=== PATIENT | female | born 1965 | race Caucasian/White ===

== ENCOUNTER → 2018-10-18 09:49 | Outpatient (CLI) | payer OTHER, SELFPAY ==
--- NOTE | 2018-10-18 | DI.MRI.S_ITS ---
PROCEDURE: MR SHOULDER RT WO CON INDICATIONS: RIGHT SHOULDER PAIN TECHNIQUE: Noncontrast oblique coronal T2 fast spin echo with fat saturation, oblique sagittal T1 spin echo and T2 fast spin echo with fat saturation, axial T1 spin echo and T2 fast spin echo with fat saturation through the shoulder. COMPARISON: [facility] [place], CR, XR SHOULDER 2+ VIEWS RIGHT, 10/03/2018, 11:10. FINDINGS: Image quality: Diagnostic Rotator cuff: No definite full-thickness or high-grade partial-thickness tear of the rotator cuff is appreciated. There is increased signal involving the supraspinatus tendon with low-grade bursal surface partial-thickness tearing at the level of the footprint (image 10, series 8). The subscapularis, infraspinatus, and 3 is minor tendons are intact and otherwise unremarkable. Bones and bursae: There is no acute fracture, dislocation, or suspicious osseous lesion involving the osseous structures of the right shoulder. No significant glenohumeral joint effusion is appreciated. There are mild degenerative changes of the glenohumeral joint. Mild to moderate degenerative changes of the acromioclavicular joint are present. Edema of the subacromial subdeltoid bursa is present with a small amount of fluid contained within the bursa. Capsule and soft tissues: Evaluation of the labrum and the glenohumeral ligaments is difficult without intra-articular contrast. However, there is a small superior labral tear that likely extends from approximately the 10 o'clock position (anterosuperior) through the 12 o'clock position (superior) and 2 the 2 o'clock position (posterosuperior). No detachment or fragment or large para labral cysts are appreciated. The lung head of the biceps tendon is normally positioned within the bicipital groove and is otherwise intact and unremarkable. No acute injuries are suspected involving the glenohumeral ligaments. IMPRESSION: 1. Low-grade bursal surface partial-thickness tearing and tendinopathy of the supraspinatus tendon. No full-thickness rotator cuff tear. 2. Mild to moderate degenerative changes of the glenohumeral and acromioclavicular joints. 3. Subacromial subdeltoid bursal thickening may be related to bursitis. Clinical correlation to exclude adhesive capsulitis is recommended. 4. Small moderate-sized superior labral tear. Dictated by: Yemi Santiago M.D. on 10/18/2018 at 14:18 Approved by: Yemi Santiago M.D. on 10/18/2018 at 14:22
== END ==
PROVIDERS: Visit Provider Orthopaedic Surgery
DX: M25.511 Pain in right shoulder (principal); M75.111 Incomplete rotator cuff tear or rupture of right shoulder, not specified as traumatic; M19.011 Primary osteoarthritis, right shoulder; S43.491A Other sprain of right shoulder joint, initial encounter
CPT/HCPCS: 73221

== ENCOUNTER → 2020-10-30 11:02 | Outpatient (CLI) | payer BC, SELFPAY ==
[2020-10-30 11:57] LABS: Add Manual Diff / Slide Review NO; Basophils Absolute Auto 0 /uL (0-100); Basophils Percent Auto 0.9 % (0-2); Eosinophils Absolute Auto 300 /uL (0-450); Eosinophils Percent Auto 5.8 % (2-4); Hematocrit 40.9 % (36-46); Hemoglobin 13.7 g/dL (12.0-16.0); Lymphocytes Absolute Auto 1800 /uL (1100-4500); Lymphocytes Percent Auto 38.3 % (25-40); Mean Corpuscular HGB Conc 33.5 % (30-36); Mean Corpuscular Hemoglobin 30.7 PG (26-34); Mean Corpuscular Volume 91.6 fL (80-100); Monocytes Absolute Auto 200 /uL (0-900); Monocytes Percent Auto 4.7 % (3-14); Neutrophils Absolute Auto 2300 /uL (1500-7000); Neutrophils Percent Auto 50.3 % (50-75); Platelet Count 268 X10^3/uL (150-400); Red Blood Cell Count 4.47 X10^6/uL (4.0-5.2); Red Cell Distribution Width 13.7 % (11.6-14.8); White Blood Cell Count 4.6 X10^3/uL (4.5-11.0)
[2020-10-30 12:17] LABS: Erythrocyte Sedimentation Rate 7 MM/HR (0-20)
[2020-10-30 12:22] LABS: Alanine Aminotransferase 17 IU/L (<35); Albumin 4.4 g/dL (3.5-5.0); Albumin Globulin Ratio 1.6 (1.0-2.8); Alkaline Phosphatase 68 U/L (38-126); Aspartate Aminotransferase 24 IU/L (14-36); BUN Creatinine Ratio 16.7 (6-22); Bilirubin Total 0.5 mg/dL (0.2-1.3); Blood Urea Nitrogen 13 mg/dL (7-17); C-Reactive Protein Quant 0.6 mg/dL (<1.0); Calcium 10.3 mg/dL (8.4-10.2); Carbon Dioxide 30 mmol/L (22-32); Chloride 103 mmol/L (98-107); Estimated Glomerular Filt Rate > 60.0 mL/min (>60); Globulin 2.7 g/dL (1.7-4.1); Glucose 106 mg/dL (70-100); HEMOLYSIS < 15 (0-50); Potassium 4.3 mmol/L (3.4-5.1); Sodium 138 mmol/L (137-145); Total Protein 7.1 g/dL (6.3-8.2)
[2020-10-30 12:23] LABS: Rheumatoid Factor < 8.6 IU/mL (<12.0)
[2020-10-30 12:49] LABS: TSH w/ Reflex to FT4 0.91 uIU/mL (0.47-4.68)
[2020-10-30 13:26] LABS: Folate 7.1 ng/mL (2.76-20.0); Vitamin B12 797 pg/mL (239-931)
[2020-11-02 20:09] LABS: Dilute Russell Viper Venom 40.6 sec (0.0-47.0); Lupus Reflex Interpretation Comment: (.); PTT-LA 35.7 sec (0.0-51.9)
== END ==
PROVIDERS: Referring Provider Physical Medicine & Rehabilitation; Visit Provider Physical Medicine & Rehabilitation
DX: M54.12 Radiculopathy, cervical region (principal)
CPT/HCPCS: 36415; 80053; 82607; 82746; 84207; 84443; 85025; 85598; 85613; 85651; 86140; 86430

== ENCOUNTER → 2024-09-06 13:38 | Outpatient (CLI) | payer OTHER, SELFPAY ==
--- NOTE | 2024-09-06 13:39 | DI.ECHO.S_ITS ---
[place] +---------+ Hospital : : [address] : : [place] : : [id number] : : Phone: [phone] Echocardiogram Report + + :Name: CLARENCE BARR Study Date: 09/06/2024 Height: 66 in : :[facility] ReadingLocation: Weight: 155 lb : : Gender: Female BSA: 1.8 m2 : :: 1965 Age: 59 yrs BP: 125/80 mmHg: :Reason For Study: PALPITATIONS : :Ordering Physician: KATE MARCIAL Performed By: Joss Joseph : :Referring: KATE MARCIAL : + + Interpretation Summary 1. The left ventricular contractility is normal. Estimated ejection fraction is greater than 60% with no segmental wall motion abnormalities. No LVH. Normal diastolic function. 2. The right ventricular contractility is normal. 3. All cardiac chambers are of normal size. 4. No significant valvular abnormalities. 5. No obvious intracardiac shunts. 6. No obvious intracardiac masses nor thrombi. 7. No hemodynamically significant pericardial effusion. 8. Low right-sided filling pressures. Conclusion: Normal biventricular function with no significant valvular nor structural abnormalities. Procedure: A two-dimensional transthoracic echocardiogram with color flow and Doppler was performed. The study quality was technically good. There is no prior echocardiogram noted for this patient. The patient was in normal sinus rhythm during the exam. Left Ventricle: The left ventricle is normal in size. There is normal left ventricular wall thickness. There is no ventricular septal defect visualized. The ejection fraction is estimated to be 60-65%. There are no focal wall motion abnormalities. Right Ventricle: The right ventricle is normal in size and function. Atria: The left atrial size is normal. Right atrial size is normal. There is no Doppler evidence for an atrial septal defect. Mitral Valve: The mitral valve is normal in structure and function. There is trace mitral regurgitation. Aortic Valve: The aortic valve is trileaflet. The aortic valve opens well. No aortic regurgitation is present. Tricuspid Valve: The tricuspid valve is normal in structure and function. No tricuspid regurgitation. Pulmonic Valve: The pulmonic valve is normal in structure and function. There is no pulmonic valvular regurgitation. Great Vessels: The aortic root is normal size. The ascending aorta could not be visualized. The pulmonary artery is normal size. The IVC is of normal diameter and collapses greater than 50% with a sniff. This suggests a low right atrial pressure of 3 mm Hg. Pericardium/ Pleura There is no pericardial effusion. There is no pleural effusion. MMode/2D Measurements & Calculations LVIDd: 4.5 cm LVOT diam: 2.2 cm LVIDs: 2.9 cm Ao root diam: 2.9 cm FS: 35.7 % Ao Arch Diam (Prox Trans): 2.3 cm EPSS: 0.53 cm IVSd: 0.93 cm LVPWd: 0.93 cm LV alarcon. diameter/BSA (cm/m^2): 2.5 LV sys. diameter/BSA (cm/m^2): 1.6 LA A2 area: 14.0 cm2 RA long axis: 4.1 cm LA A4 area: 14.0 cm2 RA area: 9.4 cm2 LA length (vol): 4.5 cm RA vol: 18.3 ml LA vol: 36.7 ml RA : 10.2 ml/m2 LA vol index: 20.5 ml/m2 IVC diam: 1.8 cm RVD1 (basal): 3.3 cm RVD2 (mid): 3.2 cm TAPSE: 2.5 cm Doppler Measurements & Calculations Ao V2 max: 115.3 cm/sec LVOT Max Vinayak: 98.9 cm/sec Ao V2 mean: 77.4 cm/sec LV V1 max P.9 mmHg Ao max P.3 mmHg LV V1 VTI: 22.8 cm Ao mean P.7 mmHg JONATHON(I,D): 3.8 cm2 Ao V2 VTI: 23.0 cm JONATHON(V,D): 3.3 cm2 sev ratio: 0.99 JONATHON indexed to BSA (cm^2/m^2): 2.1 MV E max vinayak: 65.6 cm/sec PA V2 max: 68.3 cm/sec MV A max vinayak: 55.8 cm/sec PA V2 mean: 52.0 cm/sec MV E/A: 1.2 PA mean P.2 mmHg Med Peak E' Vinayak: 8.4 cm/sec PA pr(Accel): 24.2 mmHg E/E' med: 7.8 Lat Peak E' Vinayak: 10.0 cm/sec E/E' lat: 6.6 E/e' average: 7.2 MV dec time: 0.18 sec SV(LVOT): 88.4 ml Reading Physician:
== END ==
LOC: ECHO 13:39
PROVIDERS: Referring Provider Internal Medicine; Visit Provider Internal Medicine
DX: R00.2 Palpitations (principal)
CPT/HCPCS: 93306